=== PATIENT | female | born 1970 | race Caucasian/White ===

== ENCOUNTER → 2024-02-24 12:13 | Outpatient (REF) | payer OTHER, SELFPAY | LOC: WDC 12:13 | PROVIDERS: ATTENDING PHYSICIAN Nurse Practitioner Adult Health | DX: Z12.31 Encounter for screening mammogram for malignant neoplasm of breast (principal) | CPT/HCPCS: 77063; 77067 ==

== ENCOUNTER → 2025-03-08 10:53 | Outpatient (REF) | payer OTHER, SELFPAY | LOC: WDC 10:53 | PROVIDERS: ATTENDING PHYSICIAN Nurse Practitioner Adult Health | DX: Z12.31 Encounter for screening mammogram for malignant neoplasm of breast (principal); Z12.39 Encounter for other screening for malignant neoplasm of breast | CPT/HCPCS: 77063; 77067 ==